=== PATIENT | male | born 1940 | race Caucasian/White ===

== ENCOUNTER 2016-04-23 13:51 | Inpatient (IN) | payer MEDICARE ==
[2016-04-23] VITALS (8 sets, daily range): BP systolic 125–168; BP diastolic 59–90; PULSE 70–90; RESP 16–24; TEMP 98.1–99.5; O2SAT 89–96
[~2016-04-23] VITALS: Ht 174 cm; Wt 110.5 kg
[~2016-04-23 13:51] MED LIST: ASPI81TA82 PO; CARD240C6 PO; CHOL1CAP6; FISH100020 PO; HYDR-2768 PO; LISI-363 PO; METF500 PO; MULT1TAB46; PRED20 PO; VENTAER INH; ZITH250T PO
[2016-04-23] MEDS ORDERED: CHOL1TAB42 PO (14:15)
[2016-04-23] MEDS ORDERED: ASPI81CH CHEW (14:15)
[2016-04-23] MEDS ORDERED: CART240C PO (14:15)
[2016-04-23] MEDS ORDERED: ATOR10TA15 PO (14:15)
[2016-04-23] MEDS ORDERED: METF500T4 PO (14:15)
[2016-04-23] MEDS ORDERED: CENTTAB8 PO (14:15)
[2016-04-23] MEDS ORDERED: HYDR25TA5 PO (14:15)
[2016-04-23] MEDS ORDERED: OMEG100037 PO (14:15)
[2016-04-23] MEDS ORDERED: SODIUM CHLOR 0.9% 1000 ML INJ 1,000 ML IV ONE ×2 (14:28→15:15)
--- NOTE | 2016-04-23 14:43 | RADHPO ---
EXAM DATE/TIME: 04/23/2016 14:32 [facility] COMPARISON: CHEST SINGLE AP, June 03, 2014, 17:38. INDICATIONS : Shortness of breath for four days. MEDICAL HISTORY : Hypertension. Diabetes mellitus type II. SURGICAL HISTORY : None. ENCOUNTER: Initial ACUITY: 4 - 6 days PAIN SCORE: 0/10 LOCATION: Bilateral chest FINDINGS: A single view of the chest demonstrates the lungs to be symmetrically aerated without evidence of mas s, infiltrate or effusion. The cardiomediastinal contours are unremarkable. Osseous structures are intact. CONCLUSION: Normal examination. Benito Robles MD on April 23, 2016 at 14:42 Board Certified Radiologist. This report was verified electronically.
--- NOTE | 2016-04-23 14:53 | PD ---
HPI Chief Complaint: Respiratory Distress Time Seen by Provider: 14:14 Travel History International Travel<30 days: Yes Contact w/Intl Traveler<30days: Yes Name of Country Traveled to: [place] Traveled to known affect area: No History of Present Illness HPI 75-year-old male with history of diabetes, hypertension, hypercholesterolemia, here for evaluation of cough and shortness of breath. The patient returned from a cruise from [place] today. Symptoms have been worsening over the last 4 days. Cough is productive of yellowish/greenish sputum. Subjective fevers/ chills. No hemoptysis. No chest pain. Dyspnea is at rest, worse with exertion. He is also having some orthopnea. He denies history of cardiopulmonary disease. No history of DVT or PE. PFSH Past Medical History Cardiovascular Problems: Yes (HTN) Diabetes: Yes Patient Takes Glucophage: Yes Hypertension: Yes Past Surgical History Tonsillectomy: Yes Other Surgery: Yes (CYST REMOVAL FROM BACK) Social History Alcohol Use: Yes (RARE) Tobacco Use: No Substance Use: No Allergies-Medications (Allergen,Severity, Reaction): Coded Allergies: No Known Allergies (Unverified , 04/23/16) Reported Meds & Prescriptions Reported Meds & Active Scripts Active Reported Vitamin D-3 (Cholecalciferol) 2,000 Unit Tab 1 Tab PO DAILY Fish Oil 1000 mg ([place]-3 Fatty Acids) 1 Cap Cap 4 Cap PO DAILY Centrum Adults (Multiple Vitamins W/ Minerals) 1 Tab 1 Tab PO DAILY Aspirin 81 Mg Chew 81 Mg CHEW DAILY Atorvastatin (Atorvastatin Calcium) 10 Mg Tab 10 Mg PO HS Hydrochlorothiazide 25 Mg Tab 25 Mg PO DAILY Cartia Xt (Diltiazem ER 24 HR) 240 Mg Caper 240 Mg PO DAILY Metformin ER (Metformin HCl) 500 Mg Leni 500 Mg PO BID With evening meal Review of Systems Except as stated in HPI: all other systems reviewed are Neg Physical Exam Narrative GENERAL: Well-developed, well-nourished, comfortable, no acute distress, speaking full sentences. SKIN: Warm and dry. No rash. HEAD: Atraumatic. Normocephalic. EYES: Pupils equal and round. No scleral icterus. No injection or drainage. ENT: Mucous membranes pink and moist. NECK: Trachea midline. No JVD. No nuchal rigidity. CARDIOVASCULAR: Regular rate and rhythm. RESPIRATORY: No accessory muscle use. Coarse breath sounds bilaterally. Breath sounds equal bilaterally. GASTROINTESTINAL: Abdomen soft, non-tender, nondistended. MUSCULOSKELETAL: No obvious deformities. No clubbing. No cyanosis. Mild bilateral pedal edema. No calf tenderness. NEUROLOGICAL: Awake and alert. No obvious cranial nerve deficits. Motor grossly within normal limits. Normal speech. PSYCHIATRIC: Appropriate mood and affect; insight and judgment normal. Data Data Last Documented VS Vital Signs Date Time Temp Pulse Resp B/P Pulse Ox O2 Delivery O2 Flow Rate FiO2 04/23/16 16:30 90 16 131/64 95 Nasal Cannula 3 04/23/16 13:53 98.1 Orders Complete Blood Count With Diff (04/23/16 14:28) Comprehensive Metabolic Panel (04/23/16 14:28) Prothrombin Time / Inr (Pt) (04/23/16 14:28) Act Partial Throm Time (Ptt) (04/23/16 14:28) Lactic Acid Sepsis Protocol (04/23/16 14:28) Ckmb (Isoenzyme) Profile (04/23/16 14:28) Troponin I (04/23/16 14:28) Urinalysis - C+S If Indicated (04/23/16 14:28) Influenzae A/B Antigen (04/23/16 14:28) Blood Culture (04/23/16 14:28) Chest, Single Ap (04/23/16 14:28) Ecg Monitoring (04/23/16 14:28) Iv Access Insert/Monitor (04/23/16 14:28) Oximetry (04/23/16 14:28) Oxygen Administration (04/23/16 14:28) Sodium Chlor 0.9% 1000 Ml Inj (Ns 1000 M (04/23/16 14:28) B-Type Natriuretic Peptide (04/23/16 14:28) Electrocardiogram (04/23/16 13:51) Albuterol-Ipratropium Neb (Duoneb Neb) (04/23/16 15:00) Ct Pulmonary Angiogram (04/23/16 14:47) Magnesium (Mg) (04/23/16 14:15) CKMB (04/23/16 14:15) CKMB% (04/23/16 14:15) Sodium Chlor 0.9% 1000 Ml Inj (Ns 1000 M (04/23/16 15:15) Oseltamivir (Tamiflu) (04/23/16 15:15) Potassium Cl 40 Meq/30 Ml Liq (Kcl 40 Me (04/23/16 15:30) Iohexol 350 Inj (Omnipaque 350 Inj) (04/23/16 16:20) Labs Laboratory Tests Test 04/23/16 04/23/16 04/23/16 14:15 14:35 16:20 White Blood Count 11.3 TH/MM3 Red Blood Count 4.49 MIL/MM3 Hemoglobin 13.3 GM/DL Hematocrit 40.3 % Mean Corpuscular Volume 89.7 FL Mean Corpuscular Hemoglobin 29.7 PG Mean Corpuscular Hemoglobin 33.1 % Concent Red Cell Distribution Width 12.8 % Platelet Count 261 TH/MM3 Mean Platelet Volume 9.8 FL Neutrophils (%) (Auto) 67.6 % Lymphocytes (%) (Auto) 21.1 % Monocytes (%) (Auto) 10.2 % Eosinophils (%) (Auto) 0.4 % Basophils (%) (Auto) 0.7 % Neutrophils # (Auto) 7.6 TH/MM3 Lymphocytes # (Auto) 2.4 TH/MM3 Monocytes # (Auto) 1.2 TH/MM3 Eosinophils # (Auto) 0.0 TH/MM3 Basophils # (Auto) 0.1 TH/MM3 CBC Comment DIFF FINAL Differential Comment Prothrombin Time 10.0 SEC Prothromb Time International 0.9 RATIO Ratio Activated Partial 32.0 SEC Thromboplast Time Sodium Level 140 MEQ/L Potassium Level 3.1 MEQ/L Chloride Level 99 MEQ/L Carbon Dioxide Level 30.0 MEQ/L Anion Gap 11 MEQ/L Blood Urea Nitrogen 34 MG/DL Creatinine 1.10 MG/DL Estimat Glomerular Filtration 66 ML/MIN Rate Random Glucose 139 MG/DL Calcium Level 9.6 MG/DL Magnesium Level 1.8 MG/DL Total Bilirubin 0.4 MG/DL Aspartate Amino Transf 38 U/L (AST/SGOT) Alanine Aminotransferase 50 U/L (ALT/SGPT) Alkaline Phosphatase 35 U/L Total Creatine Kinase 139 U/L Creatine Kinase MB 1.4 NG/ML Troponin I LESS THAN 0.02 NG/ML B-Type Natriuretic Peptide 16 PG/ML Total Protein 8.1 GM/DL Albumin 3.5 GM/DL Lactic Acid Level 1.2 mmol/L Urine Collection Type CATH Urine Color YELLOW Urine Turbidity CLEAR Urine pH 5.5 Urine Specific [place] 1.018 Urine Protein TRACE mg/dL Urine Glucose (UA) NEG mg/dL Urine Ketones NEG mg/dL Urine Occult Blood NEG Urine Nitrite NEG Urine Bilirubin NEG Urine Leukocyte Esterase NEG Urine Squamous Epithelial 0-5 /hpf Cells Urine Amorphous Sediment FEW Microscopic Urinalysis Comment CULT NOT INDICATED Urine Collection Time 1620 MDM Medical Decision Making Medical Screen Exam Complete: Yes Emergency Medical Condition: Yes Medical Record Reviewed: Yes Interpretation(s) EKG: Sinus with bigeminal PVCs, rate 89, indeterminate axis, no acute ischemic abnormality. Differential Diagnosis Pneumonia, bronchitis, PE, reactive airway disease, pleural effusion, influenza , pneumothorax, ACS Narrative Course Initial vital signs show heart rate 85, blood pressure 162/74, pulse ox 89% on room air/95% on 3 L nasal cannula, oral temp of 98.1F. CBC shows WBC 11.3, hemoglobin 13.3, hematocrit 40.3, platelets 261. CMP is remarkable for potassium 3.1 which was replaced orally, random glucose 139, otherwise unremarkable. Cardiac enzymes are negative. BNP is 16. Lactic acid is 1.2. Chest x-ray read as normal examination. Influenza B-positive. Patient was given a dose of Tamiflu. CT pulmonary angiogram: CONCLUSION: 1. Negative for central pulmonary emboli. 2. 6 mm nodule left upper lobe that does need followup CT scan in 6 months. 3. Moderate coronary artery calcification in both the LAD and the circumflex. The patient was given 3 DuoNeb treatments with some improvement in cough and dyspnea. The patient and the patient's were made aware of all findings. O2 saturation drops to 89% on room air. The patient does have generalized body aches. Given the patient's age with positive influenza B as well as hypoxia, he will be admitted for overnight observation. Case discussed with hospitalist Dr. Vicente will admit the patient to her service. The patient was provided a copy of this CT pulmonary angiogram report. Diagnosis Primary Impression: Influenza B Additional Impressions: Hypoxia Cough Pulmonary nodule Admitting Information Admitting Physician Requests: it Krunal Gay MD Apr 23, 2016 14:53
[2016-04-23 14:54] LABS: CHLORIDE 99 MEQ/L (98-107); POTASSIUM 3.1 MEQ/L (3.5-5.1); SODIUM (NA) 140 MEQ/L (136-145)
[2016-04-23 14:55] LABS: AUTOMATED NEUTROPHIL # 7.6 TH/MM3 (1.8-7.7); BASOPHIL # 0.1 TH/MM3 (0-0.2); BASOPHIL % 0.7 % (0.0-2.0); EOSINOPHIL % 0.4 % (0.0-4.0); HEMATOCRIT 40.3 % (39.0-51.0); LYMPH % 21.1 % (9.0-44.0); LYMPHOCYTE # 2.4 TH/MM3 (1.0-4.8); MEAN CELL VOLUME 89.7 FL (80.0-100.0); MEAN CORPUSCULAR HEMOGLOBIN 29.7 PG (27.0-34.0); MEAN CORPUSCULAR HGB CONC 33.1 % (32.0-36.0); MONO % 10.2 % (0.0-8.0); NEUT % 67.6 % (16.0-70.0); PLATELET COUNT 261 TH/MM3 (150-450); RED BLOOD COUNT 4.49 MIL/MM3 (4.50-5.90); RED CELL DISTRIBUTION WIDTH 12.8 % (11.6-17.2); WHITE BLOOD COUNT 11.3 TH/MM3 (4.0-11.0)
[2016-04-23] MEDS: RESP: ALBUTEROL 2.5 MG/IPRATROPIUM 0.5 MG NEB (SCH) INH ×2 (14:56→14:57)
[2016-04-23 14:57] LABS: HEMO FLAGS DIFF FINAL
[2016-04-23 14:58] LABS: ANION GAP 11 MEQ/L (5-15); BLOOD UREA NITROGEN 34 MG/DL (7-18); MAGNESIUM 1.8 MG/DL (1.5-2.5)
[2016-04-23 14:59] LABS: INTERNATIONAL NORMALIZED RATIO 0.9 RATIO
[2016-04-23 15:01] LABS: ALT (GPT) 50 U/L (12-78); AST (GOT) 38 U/L (15-37); GLOMERULAR FILTRATION RATE 66 ML/MIN (>89)
[2016-04-23 15:02] LABS: TOTAL BILIRUBIN ADULT 0.4 MG/DL (0.2-1.0)
[2016-04-23 15:04] LABS: ALKALINE PHOSPHATASE 35 U/L (45-117); CREATINE KINASE 139 U/L (39-308)
[2016-04-23] MEDS ORDERED: OSELTAMIVIR PHOSPHATE 75 MG CAP PO ONE (15:15)
[2016-04-23 15:16] LABS: CKMB 1.4 NG/ML (0.5-3.6)
[2016-04-23] MEDS ORDERED: POTASSIUM CL 40 MEQ/30 ML LIQ UDC PO ONE (15:30)
[2016-04-23] MEDS ORDERED: METFORMIN HOLD POST IV CONTRAST XX SCH (16:05)
[2016-04-23] MEDS ORDERED: IOHEXOL 350 MG/ML 10 ML VIAL (for RAD DIAG) IV ONE (16:20)
--- NOTE | 2016-04-23 16:34 | RADHPO ---
EXAM DATE/TIME: 04/23/2016 16:01 [facility] COMPARISON: No previous studies available for comparison. INDICATIONS : Shortness of breath for four days. IV CONTRAST: 74 cc Omnipaque 350 (iohexol) IV RADIATION DOSE: 21.72 CTDIvol (mGy) MEDICAL HISTORY : Hypertension. Diabetes. SURGICAL HISTORY : Tonsillectomy. ENCOUNTER: Initial ACUITY: 1 day PAIN SCALE: 0/10 LOCATION: Bilateral chest TECHNIQUE: Volumetric scanning of the chest was performed using a pulmonary embolism protocol MIP images were reconstructed. Using automated exposure control and adjustment of the mA and/or kV acco rding to patient size, radiation dose was kept as low as reasonably achievable to obtain optimal diag nostic quality images. FINDINGS: There is a 6 mm nodule in the left upper lobe. Scattered peribronchial thickening is noted. There a re no other suspicious lung lesions identified. There is no axillary adenopathy. There is no medias tinal adenopathy. There is marked coronary artery calcifications. There is no evidence for central pulmonary emboli. Portion of liver and spleen identified are free o f focal defects. CONCLUSION: 1. Negative for central pulmonary emboli. 2. 6 mm nodule left upper lobe that does need followup CT scan in 6 months. 3. Moderate coronary artery calcification in both the LAD and the circumflex. Burno Rosario MD FACR on April 23, 2016 at 16:29 Board Certified Radiologist. This report was verified electronically.
[2016-04-23 16:35] LABS: BLOOD, URINE NEG (NEG); GLUCOSE,URINE NEG (NEG); KETONE, URINE NEG (NEG); NITRITE,URINE NEG (NEG); PH, URINE 5.5 (5.0-8.5)
[2016-04-23 16:39] LABS: METHOD OF COLLECTION CATH; URINE COLOR YELLOW (YELLW/STRAW)
[2016-04-23 16:41] LABS: COMMENT (UR) CULT NOT INDICATED; CULTURE IF INDICATED CULT NOT INDICATED; SQUAMOUS EPITHELIAL CELL URINE 0-5 /hpf (0-5)
[2016-04-23] MEDS ORDERED: SODIUM CHLORIDE 0.9% FLUSH 5 ML FLUSH FLUSH PRN (17:45)
[2016-04-23] MEDS ORDERED: ACETAMINOPHEN 325 MG TAB PO PRN (17:45)
[2016-04-23] MEDS ORDERED: GLUCAGON 1 MG/ML VIAL OTHER PRN (18:00)
[2016-04-23] MEDS ORDERED: RESP: ALBUTEROL 2.5 MG/3 ML NEB (PRN) NEB (18:00)
[2016-04-23] MEDS ORDERED: DEXTROSE 50% IN WATER 50 ML VIAL(D50) IV PUSH PRN (18:00)
[2016-04-23] MEDS: SODIUM CHLOR 0.9% 1000 ML INJ 1,000 ML IV SCH (18:07)
--- NOTE | 2016-04-23 18:08 | HHI.HP ---
[facility] Service [facility] Primary Care Physician Non-Staff Admission Diagnosis influenza B, hypoxia, cough Diagnoses: (1) Influenza B Diagnosis: Principal (2) Bronchitis Diagnosis: Principal (3) Hypoxia Diagnosis: Principal (4) Bigeminy Diagnosis: Principal (5) Hypokalemia Diagnosis: Principal (6) Prerenal azotemia Diagnosis: Principal (7) Pulmonary nodule Diagnosis: Secondary (8) Coronary artery calcification seen on CAT scan Diagnosis: Secondary Chief Complaint: "couldn't breathe" Travel History International Travel<30 Days: Yes Contact w/Intl Traveler <30 Da: Yes Name of Country Traveled to: [place] Traveled to Known Affected Are: No History of Present Illness 75-year-old male with history of diabetes, hypertension, and hyperlipidemia is admitted for influenza and hypoxia. Patient states he went on a cruise recently to [place]. He states 4 days ago while on the cruise he developed symptoms. He states he "couldn't breathe" admitting to shortness of breath and wheezing. He admits to myalgias, fevers and chills, runny nose and congestion, and a cough mildly productive with yellow-kearney sputum. He denies any headaches, earache, or sore throat. Denies any chest pain. He denies any nausea, vomiting, or abdominal pain but states he feels bloated. He states he had a little bit of diarrhea admitting to stools which were a little loose this morning. Denies diagnosis of COPD. Patient admits to orthopnea but states this is a chronic issue. Patient denies any recent hospitalization or antibiotic use. He denies any recent leg swelling although states he will get swelling once in a while. Denies any hemoptysis. Review of Systems Constitutional: COMPLAINS OF: Fever, Chills, DENIES: Dizziness Eyes: DENIES: Blurred vision Ears, nose, mouth, throat: COMPLAINS OF: Running Nose, DENIES: Throat pain, Ear Pain Respiratory: COMPLAINS OF: Cough, Wheezing, Sputum production, Shortness of breath, DENIES: Hemoptysis Cardiovascular: COMPLAINS OF: Orthopnea, DENIES: Chest pain, Palpitations, Lower Extremity Edema Gastrointestinal: COMPLAINS OF: Diarrhea, DENIES: Abdominal pain, Black stools , Bloody stools, Nausea, Vomiting Genitourinary: DENIES: Urinary frequency, Dysuria Musculoskeletal: COMPLAINS OF: Muscle aches, DENIES: Neck pain Integumentary: DENIES: Rash Neurologic: DENIES: Headache, Localized weakness, Paresthesias Past Family Social History Past Medical History Diabetes Hypertension Hyperlipidemia Past Surgical History Abdominal hernia repair Pilonidal cyst removal Tonsillectomy Reported Medications Vitamin D-3 (Cholecalciferol) 2,000 Unit Tab 1 Tab PO DAILY Fish Oil 1000 mg ([place]-3 Fatty Acids) 1 Cap Cap 4 Cap PO DAILY Centrum Adults (Multiple Vitamins W/ Minerals) 1 Tab 1 Tab PO DAILY Aspirin 81 Mg Chew 81 Mg CHEW DAILY Atorvastatin (Atorvastatin Calcium) 10 Mg Tab 10 Mg PO HS Hydrochlorothiazide 25 Mg Tab 25 Mg PO DAILY Cartia Xt (Diltiazem ER 24 HR) 240 Mg Caper 240 Mg PO DAILY Metformin ER (Metformin HCl) 500 Mg Leni 500 Mg PO BID With evening meal Allergies: Coded Allergies: No Known Allergies (Unverified , 04/23/16) Family History Mother: Diabetes which developed later in life. Brother: Emphysema, smoker. Sister: age 50 from a hereditary disease. Brother is unsure but states she may have had an [facility]. 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 Lives in [place]. Patient quit smoking cigarettes 18-19 years ago, but smoked a couple of packs per day prior to this; started smoking at the age of 18. Rarely drinks alcohol. Denies history of illicit drug use. Physical Exam Vital Signs Vital Signs Date Time Temp Pulse Resp B/P Pulse Ox O2 Delivery O2 Flow Rate FiO2 04/23/16 16:30 90 16 131/64 95 Nasal Cannula 3 04/23/16 14:30 70 20 125/59 93 Nasal Cannula 3 04/23/16 14:15 89 Nasal Cannula 3 04/23/16 13:53 98.1 85 24 162/74 89 04/23/16 13:53 85 24 95 Nasal Cannula 3 Physical Exam GENERAL: This is a well-nourished, well-developed patient, in no apparent distress but he needs to sit on the side of the bed in order to breathe better. SKIN: No rashes, ecchymoses or lesions. Cool and dry. HEAD: Normocephalic. EYES: Pupils equal round and reactive. No scleral icterus. No injection or drainage. ENT: Right EAC with cerumen. Mild fluid at the left TM; no erythema of TMs bilaterally. Nose without bleeding. Throat without erythema or exudate. Uvula midline. Airway patent. NECK: Trachea midline. No lymphadenopathy. Supple; nontender over cervical spine. Full flexion, extension, and lateral range of motion of neck without difficulty or pain. CARDIOVASCULAR: Heart is difficult to auscultate due to respiratory sounds. Regular rate and rhythm. Bigeminy is noted on telemetry at times. RESPIRATORY: Diminished inspiratory breath sounds throughout with expiratory wheezing throughout. No rales. Productive cough with upper airway sounds noted. GASTROINTESTINAL: Abdomen non-tender, equivocally distended. No guarding. MUSCULOSKELETAL: No lower extremity edema bilaterally. NEUROLOGICAL: Awake and alert. Motor grossly within normal limits. Normal speech. Laboratory Laboratory Tests Test 04/23/16 04/23/16 04/23/16 14:15 14:35 16:20 White Blood Count 11.3 Red Blood Count 4.49 Hemoglobin 13.3 Hematocrit 40.3 Mean Corpuscular Volume 89.7 Mean Corpuscular Hemoglobin 29.7 Mean Corpuscular Hemoglobin 33.1 Concent Red Cell Distribution Width 12.8 Platelet Count 261 Mean Platelet Volume 9.8 Neutrophils (%) (Auto) 67.6 Lymphocytes (%) (Auto) 21.1 Monocytes (%) (Auto) 10.2 Eosinophils (%) (Auto) 0.4 Basophils (%) (Auto) 0.7 Neutrophils # (Auto) 7.6 Lymphocytes # (Auto) 2.4 Monocytes # (Auto) 1.2 Eosinophils # (Auto) 0.0 Basophils # (Auto) 0.1 CBC Comment DIFF FINAL Differential Comment Prothrombin Time 10.0 Prothromb Time International 0.9 Ratio Activated Partial 32.0 Thromboplast Time Sodium Level 140 Potassium Level 3.1 Chloride Level 99 Carbon Dioxide Level 30.0 Anion Gap 11 Blood Urea Nitrogen 34 Creatinine 1.10 Estimat Glomerular Filtration 66 Rate Random Glucose 139 Calcium Level 9.6 Magnesium Level 1.8 Total Bilirubin 0.4 Aspartate Amino Transf 38 (AST/SGOT) Alanine Aminotransferase 50 (ALT/SGPT) Alkaline Phosphatase 35 Total Creatine Kinase 139 Creatine Kinase MB 1.4 Troponin I LESS THAN 0.02 B-Type Natriuretic Peptide 16 Total Protein 8.1 Albumin 3.5 Lactic Acid Level 1.2 Urine Collection Type CATH Urine Color YELLOW Urine Turbidity CLEAR Urine pH 5.5 Urine Specific [place] 1.018 Urine Protein TRACE Urine Glucose (UA) NEG Urine Ketones NEG Urine Occult Blood NEG Urine Nitrite NEG Urine Bilirubin NEG Urine Leukocyte Esterase NEG Urine Squamous Epithelial 0-5 Cells Urine Amorphous Sediment FEW Microscopic Urinalysis Comment CULT NOT INDICATED Urine Collection Time 1620 Date/Time Procedure Status Source Growth 04/23/16 14:50 Influenza Types A,B Antigen (HEIDI) - Final Complete Nasal Washing Positive For Flu B Antigen 04/23/16 14:45 Aerobic Blood Culture Received Blood Peripheral Pending 04/23/16 14:45 Anaerobic Blood Culture Received Blood Peripheral Pending Result Diagram: 04/23/16 1415 04/23/[address] pulmonary angiogram shows a 6 mm nodule in the left upper lobe which needs follow-up CT scan in 6 months. Scattered peribronchial thickening is noted. No axillary adenopathy. No mediastinal adenopathy. Moderate coronary artery calcification in both the LAD and the circumflex. Negative for central pulmonary emboli. Chest x-ray without infiltrate or effusion. Assessment and Plan Assessment and Plan 75-year-old male with: Bronchitis/influenza/hypoxia: Patient's symptoms started 4 days ago and although somewhat early to diagnose bronchitis, patient is SOB and clearly has tightness and wheezing on exam with productive cough and positive influenza B test. Mild leukocytosis of 11.3. Patient's oxygen saturation was 89% on room air, but improved to 96% on 3 L of O2 via nasal cannula. Chest x-ray was personally interpreted without evidence of acute infiltrate. There is scattered peribronchial thickening on CTA chest. Patient was given 3 DuoNeb's and Tamiflu in the ED. Patient admits to some orthopnea, but BNP normal. No lower extremity edema or pulmonary edema on imaging. Troponin normal. -Continue Tamiflu 75 mg by mouth twice a day for a total of 5 days as patient is a diabetic -Continue oxygen and titrate as needed to keep O2 >92% -Solu-Medrol 125 mg IV once now -DuoNebs scheduled every 4 hours while awake; q2h prn -Guaifenesin-dextromethorphan prn cough Bigeminy: EKG personally interpreted with sinus rhythm and bigeminal PVCs; indeterminate axis. Telemetry was also noted to have bigeminy but would alternate with regular rhythm and isolated PVCs. Patient denies having any palpitations or dizziness. He is on diltiazem, continue. -Telemetry Prerenal azotemia: BUN 34. Creatinine normal at 1.10. -IV normal saline at 100 mL/hour -Monitor BMP -Hold home HCTZ for now Hypokalemia: Mild 3.1. Patient was given 40 mEq by mouth KCl in the ED. -Monitor and replete as needed Diabetes: BGL 139. -Hold metformin for 48 hours as patient received IV contrast. -Bedside Accu-Cheks with medium dose sliding scale insulin HTN: BP 162/70 on presentation. Likely due to acute illness. -Continue home medications -Clonidine 0.1 every 6 hours prn SBP >180 Pulmonary nodule: Incidental finding on CT pulmonary angiogram. Patient does have a history of smoking. He is advised he will need outpatient follow-up for this to rule out cancer. Coronary artery calcifications on CT scan: Incidental finding. Patient is on a statin, aspirin, and antihypertensives. Denies chest pain. 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 DVT prevention: TEDs/SCDs, heparin Physician Certification 2 Midnight Certification Type: Admission for Inpatient Services Order for Inpatient Services The services are ordered in accordance with Medicare regulations or non- Medicare payer requirements, as applicable. In the case of services not specified as inpatient-only, they are appropriately provided as inpatient services in accordance with the 2-midnight benchmark. Estimated LOS (days): 2 days is the estimated time the patient will need to remain in the hospital, assuming treatment plan goals are met and no additional complications. Post-Hospital Plan: Home Yesy Azevedo Apr 23, 2016 18:08
[2016-04-23] MEDS ORDERED: methylPREDNISolone SOD SUCC 125 MG/2 ML VIAL IV PUSH ONE (18:15)
[2016-04-23] MEDS ORDERED: guaiFENesin/DEXTROMETHORPHAN 200 MG/20 MG/10 ML CUP PO PRN (18:45)
[2016-04-23] MEDS ORDERED: cloNIDine HCL 0.1 MG TAB PO PRN (19:15)
[2016-04-23] MEDS: RESP: ALBUTEROL 2.5 MG/IPRATROPIUM 0.5 MG NEB (SCH) NEB (19:28)
[2016-04-23] MEDS: SODIUM CHLORIDE 0.9% FLUSH 5 ML FLUSH FLUSH SCH (21:00)
[2016-04-23] MEDS ORDERED: INSULIN ASPART SUPPLEMENTAL SCALE SQ SCH (21:00)
[2016-04-23] MEDS: ATORVASTATIN 10 MG TAB PO SCH (21:16)
[2016-04-23] MEDS: INSULIN ASPART SUPPLEMENTAL SCALE SQ SCH (21:17)
[2016-04-23] MEDS: HEPARIN SODIUM - SQ 10,000 UNITS/ML VIAL SQ SCH (21:18)
[2016-04-23] MEDS: OSELTAMIVIR PHOSPHATE 75 MG CAP PO SCH (21:18)
[2016-04-24] VITALS (10 sets, daily range): BP systolic 140–168; BP diastolic 56–95; PULSE 52–83; RESP 16–24; TEMP 96.1–98.8; O2SAT 92–96
[2016-04-24] MEDS: SODIUM CHLOR 0.9% 1000 ML INJ 1,000 ML IV SCH (03:10)
[2016-04-24] MEDS: INSULIN ASPART SUPPLEMENTAL SCALE SQ SCH ×4 (06:09→20:25)
[2016-04-24] MEDS: RESP: ALBUTEROL 2.5 MG/IPRATROPIUM 0.5 MG NEB (SCH) NEB ×4 (07:37→19:39)
[2016-04-24 07:57] LABS: EOSINOPHIL % 0.1 % (0.0-4.0); HEMATOCRIT 36.2 % (39.0-51.0); LYMPH % 14.5 % (9.0-44.0); LYMPHOCYTE # 0.9 TH/MM3 (1.0-4.8); MEAN CORPUSCULAR HEMOGLOBIN 30.8 PG (27.0-34.0); MEAN CORPUSCULAR HGB CONC 34.6 % (32.0-36.0); MONO % 3.4 % (0.0-8.0); PLATELET COUNT 221 TH/MM3 (150-450); RED BLOOD COUNT 4.07 MIL/MM3 (4.50-5.90); RED CELL DISTRIBUTION WIDTH 12.4 % (11.6-17.2); WHITE BLOOD COUNT 6.1 TH/MM3 (4.0-11.0)
[2016-04-24 08:01] LABS: HEMO FLAGS DIFF FINAL
[2016-04-24 08:05] LABS: POTASSIUM 3.7 MEQ/L (3.5-5.1)
[2016-04-24 08:17] LABS: BICARBONATE 28.8 MEQ/L (21.0-32.0)
[2016-04-24] MEDS: DILTIAZEM-CD 240 MG CAP ER PO SCH (08:45)
[2016-04-24] MEDS: ASPIRIN 81 MG CHEW TAB CHEW SCH (08:45)
[2016-04-24] MEDS: OSELTAMIVIR PHOSPHATE 75 MG CAP PO SCH ×2 (08:46→20:24)
[2016-04-24] MEDS: MULTIVITAMINS/MINERALS THERAPEUTIC TAB PO SCH (08:46)
[2016-04-24] MEDS: SODIUM CHLORIDE 0.9% FLUSH 5 ML FLUSH FLUSH SCH ×2 (08:46→20:22)
[2016-04-24] MEDS: CHOLECALCIFEROL (VIT D3) 1000 UNIT TAB PO SCH (08:46)
[2016-04-24] MEDS: HEPARIN SODIUM - SQ 10,000 UNITS/ML VIAL SQ SCH ×2 (08:47→20:22)
[2016-04-24] MEDS ORDERED: HYDROCHLOROTHIAZIDE 25 MG TAB PO SCH (09:00)
--- NOTE | 2016-04-24 09:37 | HHI.PR ---
Subjective Remarks Follow-up for bronchitis from influenza with hypoxia. Patient states he had night sweats last night, but patient remains afebrile. States his cough is the same, but shortness of breath and wheezing have improved. Denies any vomiting or diarrhea. Objective Vitals Vital Signs Date Time Temp Pulse Resp B/P Pulse Ox O2 Delivery O2 Flow Rate FiO2 04/24/16 08:00 97.9 65 24 150/89 95 04/24/16 07:39 95 Nasal Cannula 3.00 04/24/16 04:00 97.6 56 22 168/95 96 04/24/16 00:00 96.1 52 20 168/75 95 04/23/16 21:06 99.5 80 22 152/86 93 04/23/16 20:01 85 04/23/16 19:28 94 Nasal Cannula 3.00 04/23/16 18:30 99.4 84 24 163/90 96 04/23/16 18:10 88 16 168/80 95 Nasal Cannula 3 04/23/16 16:30 90 16 131/64 95 Nasal Cannula 3 04/23/16 14:30 70 20 125/59 93 Nasal Cannula 3 04/23/16 14:15 89 Nasal Cannula 3 04/23/16 13:53 98.1 85 24 162/74 89 04/23/16 13:53 85 24 95 Nasal Cannula 3 I/O 04/23/16 04/23/16 04/23/16 04/24/16 04/24/16 04/24/16 07:00 15:00 23:00 07:00 15:00 23:00 Intake Total 3023 ml 671 ml Output Total 700 ml Balance 2323 ml 671 ml Intake IV Total 3023 ml 671 ml Output Urine Total 700 ml # Voids 1 Result Diagram: 04/24/16 0625 04/24/16 [address] Angiography 04/23/16 1447 Signed Impressions: Service Date/Time: Saturday, April 23, 2016 16:01 - CONCLUSION: 1. Negative for central pulmonary emboli. 2. 6 mm nodule left upper lobe that does need followup CT scan in 6 months. 3. Moderate coronary artery calcification in both the LAD and the circumflex. Bruon Rosario MD FACR Chest X-Ray 04/23/16 1428 Signed Impressions: Service Date/Time: Saturday, April 23, 2016 14:32 - CONCLUSION: Normal examination. Benito Robles MD Objective Remarks GENERAL: Well-nourished, well-developed patient in no apparent distress sitting in recliner. SKIN: Warm and dry. CARDIOVASCULAR: Regular rate and rhythm. RESPIRATORY: No accessory muscle use. Inspiratory and expiratory wheezing throughout. No longer has abnormal upper airway sounds. GASTROINTESTINAL: Abdomen soft, non-tender, nondistended. MUSCULOSKELETAL: No lower extremity edema. NEUROLOGICAL: Awake and alert. Motor grossly within normal limits. Normal speech. PSYCHIATRIC: Appropriate mood and affect; insight and judgment normal. Urinary Catheter: No Vascular Central Line Catheter: No A/P Problem List: (1) Influenza B ICD Code: J10.1 Status: Acute (2) Bronchitis ICD Code: J40 Status: Acute (3) Hypoxia ICD Code: R09.02 Status: Acute (4) Bigeminy ICD Code: I49.9 Status: Acute (5) Hypokalemia ICD Code: E87.6 Status: Acute (6) Prerenal azotemia ICD Code: R79.89 Status: Acute (7) Pulmonary nodule ICD Code: R91.1 Status: Acute (8) Coronary artery calcification seen on CAT scan ICD Code: I25.10 Status: Acute Assessment and Plan 75-year-old male with: Bronchitis/influenza/hypoxia: Leukocytosis resolved. Wheezing on exam. SOB improved. Patient's oxygen saturation was 89% on room air, improved to 96% on 3 L of O2 but now back to 92% on 3L. Chest x-ray was personally interpreted without evidence of acute infiltrate. There is scattered peribronchial thickening on CTA chest. Patient admits to some orthopnea, but BNP normal. No lower extremity edema or pulmonary edema on imaging. Troponin normal. -Continue Tamiflu 75 mg by mouth twice a day for a total of 5 days as patient is a diabetic -Continue oxygen and titrate as needed to keep O2 >92% -S/p Solumedrol. Continue low dose prednisone 20 mg po daily. -DuoNebs scheduled every 4 hours while awake; q2h prn -Patient has not been using Guaifenesin-dextromethorphan prn cough. Will switch to guaifenesin 600 mg po bid scheduled to help expectorate mucus. Tessalon prn cough. -If improved tomorrow, will need walk test. Bigeminy: EKG personally interpreted with sinus rhythm and bigeminal PVCs; indeterminate axis. Telemetry was also noted to have bigeminy but would alternate with regular rhythm and isolated PVCs. Patient denies having any palpitations or dizziness. He is on diltiazem, continue. -Telemetry Prerenal azotemia: Improved. BUN 34-->23. Creatinine normal. -Discontinue IVF. RN states patient is eating and drinking. Hydrate orally. -Recheck am BMP -Hold home HCTZ for now, likely can resume tomorrow. Hypokalemia: Resolved. 3.1-->3.7 s/p repletion. -Monitor and replete as needed Diabetes: BGL 234 this am likely attributed to high dose of Solumedrol last night. -Hold metformin for 48 hours as patient received IV contrast. -Bedside Accu-Cheks with medium dose sliding scale insulin. If remains significantly elevated, may need to switch to high dose SSI. Hopefully will improve as IV steroid will not be continued. HTN: BP 162/70 on presentation. Likely due to acute illness. -Continue home medications aside from HCTZ which was held due to azotemia. -Clonidine 0.1 every 6 hours prn SBP >160 DBP >90 Pulmonary nodule: Incidental finding on CT pulmonary angiogram. Patient does have a history of smoking. He is advised he will need outpatient follow-up for this to rule out cancer. Coronary artery calcifications on CT scan: Incidental finding. Patient is on a statin, aspirin, and antihypertensives. Denies chest pain. He is advised to follow-up with outpatient transmitter chief. PT eval for possible deconditioning due to illness. DVT prevention: TEDs/SCDs, heparin Discussed with Dr. Vicente. Yesy Azevedo Apr 24, 2016 09:36
--- NOTE | 2016-04-24 13:28 | EKG ---
Date Performed: 04/23/2016 Time Performed: 13:51:46 PTAGE: 75 years EKG: Sinus rhythm with bigeminal PVCs. Indeterminate axis IV conduction defect Poor R wave progression - probable norm al variant Abnormal ECG NO PREVIOUS TRACING DOCTOR: Dragan De La Cruz Interpretating Date/Time 04/24/2016 13:27:38
[2016-04-24] MEDS: predniSONE 20 MG TAB PO SCH (13:35)
[2016-04-24] MEDS ORDERED: BENZONATATE 100 MG CAP PO PRN (14:30)
[2016-04-24] MEDS: ATORVASTATIN 10 MG TAB PO SCH (20:24)
[2016-04-24] MEDS: guaiFENesin E.R. 600 MG TAB PO SCH (20:26)
[2016-04-25] VITALS: BP 150/89; PULSE 73; RESP 18; TEMP 96; O2SAT 96
[2016-04-25 04:00] VITALS: BP 156/88; PULSE 74; RESP 18; TEMP 96.8; O2SAT 95
[2016-04-25] MEDS: INSULIN ASPART SUPPLEMENTAL SCALE SQ SCH ×2 (05:44→13:58)
[2016-04-25] MEDS: RESP: ALBUTEROL 2.5 MG/IPRATROPIUM 0.5 MG NEB (SCH) NEB ×3 (07:31→14:34)
[2016-04-25 07:33] VITALS: O2SAT 97
[2016-04-25 08:00] VITALS: BP 157/69; PULSE 68; RESP 20; TEMP 98.2; O2SAT 94
[2016-04-25] MEDS: HEPARIN SODIUM - SQ 10,000 UNITS/ML VIAL SQ SCH (09:33)
[2016-04-25] MEDS: ASPIRIN 81 MG CHEW TAB CHEW SCH (09:39)
[2016-04-25] MEDS: MULTIVITAMINS/MINERALS THERAPEUTIC TAB PO SCH (09:39)
[2016-04-25] MEDS: guaiFENesin E.R. 600 MG TAB PO SCH (09:39)
[2016-04-25] MEDS: predniSONE 20 MG TAB PO SCH (09:39)
[2016-04-25] MEDS: CHOLECALCIFEROL (VIT D3) 1000 UNIT TAB PO SCH (09:41)
[2016-04-25] MEDS: DILTIAZEM-CD 240 MG CAP ER PO SCH (09:41)
[2016-04-25] MEDS: OSELTAMIVIR PHOSPHATE 75 MG CAP PO SCH (09:42)
[2016-04-25] MEDS ORDERED: PRED20 PO (11:16)
[2016-04-25] MEDS ORDERED: OSEL75 PO (11:16)
--- NOTE | 2016-04-25 11:16 | HHI.DCPOC ---
Discharge Care Plan Diagnosis: (1) Hypoxia (2) Influenza B Goals to Promote Your Health * To prevent worsening of your condition and complications * To maintain your health at the optimal level Directions to Meet Your Goals Take your medications as prescribed Follow your dietary instruction Follow activity as directed Keep your appointments as scheduled Take your immunizations and boosters as scheduled If your symptoms worsen call your PCP, if no PCP go to Urgent Care Center or Emergency Room Smoking is Dangerous to Your Health. Avoid second hand smoke Call the 24-hour hour crisis hotline for domestic abuse at Elizabeth Vicente MD Apr 25, 2016 11:16
[2016-04-25 12:00] VITALS: BP 142/77; PULSE 60; RESP 20; TEMP 97.2; O2SAT 94
--- NOTE | 2016-04-25 12:01 | HHI.DS ---
Discharge Summary Admission Date Apr 23, 2016 at 17:13 Discharge Date: Apr 25, 2016 Admitting Diagnosis influenza B, hypoxia, cough (1) Influenza B ICD Code: J10.1 Diagnosis: Principal (2) Bronchitis ICD Code: J40 Diagnosis: Principal (3) Hypoxia ICD Code: R09.02 Diagnosis: Principal (4) Bigeminy ICD Code: I49.9 Diagnosis: Principal (5) Hypokalemia ICD Code: E87.6 Diagnosis: Principal (6) Prerenal azotemia ICD Code: R79.89 Diagnosis: Principal (7) Pulmonary nodule ICD Code: R91.1 Diagnosis: Secondary (8) Coronary artery calcification seen on CAT scan ICD Code: I25.10 Diagnosis: Secondary Procedures none Brief History - From Admission 75-year-old male with history of diabetes, hypertension, and hyperlipidemia is admitted for influenza and hypoxia. Patient states he went on a cruise recently to [place]. He states 4 days ago while on the cruise he developed symptoms. He states he "couldn't breathe" admitting to shortness of breath and wheezing. He admits to myalgias, fevers and chills, runny nose and congestion, and a cough mildly productive with yellow-kearney sputum. He denies any headaches, earache, or sore throat. Denies any chest pain. He denies any nausea, vomiting, or abdominal pain but states he feels bloated. He states he had a little bit of diarrhea admitting to stools which were a little loose this morning. Denies diagnosis of COPD. Patient admits to orthopnea but states this is a chronic issue. Patient denies any recent hospitalization or antibiotic use. He denies any recent leg swelling although states he will get swelling once in a while. Denies any hemoptysis. CBC/BMP: 04/24/16 0625 04/24/16 0625 Significant Findings Laboratory Tests Test 04/23/16 04/24/16 14:15 06:25 White Blood Count 11.3 TH/MM3 (4.0-11.0) Red Blood Count 4.49 MIL/MM3 4.07 MIL/MM3 (4.50-5.90) (4.50-5.90) Monocytes (%) (Auto) 10.2 % (0.0-8.0) Monocytes # (Auto) 1.2 TH/MM3 (0-0.9) Activated Partial 32.0 SEC Thromboplast Time (24.3-30.1) Potassium Level 3.1 MEQ/L (3.5-5.1) Blood Urea Nitrogen 34 MG/DL (7-18) 23 MG/DL (7-18) Estimat Glomerular Filtration 66 ML/MIN (>89) Rate Random Glucose 139 MG/DL 237 MG/DL (74-106) (74-106) Aspartate Amino Transf 38 U/L (15-37) (AST/SGOT) Alkaline Phosphatase 35 U/L (45-117) Troponin I LESS THAN 0.02 NG/ML (0.02-0.05) Hemoglobin 12.5 GM/DL (13.0-17.0) Hematocrit 36.2 % (39.0-51.0) Neutrophils (%) (Auto) 82.0 % (16.0-70.0) Lymphocytes # (Auto) 0.9 TH/MM3 (1.0-4.8) Imaging Last Impressions CT Angiography 04/23/16 1447 Signed Impressions: Service Date/Time: Saturday, April 23, 2016 16:01 - CONCLUSION: 1. Negative for central pulmonary emboli. 2. 6 mm nodule left upper lobe that does need followup CT scan in 6 months. 3. Moderate coronary artery calcification in both the LAD and the circumflex. Bruno Rosario MD FACR Chest X-Ray 04/23/16 1428 Signed Impressions: Service Date/Time: Saturday, April 23, 2016 14:32 - CONCLUSION: Normal examination. Benito Robles MD PE at Discharge GENERAL: Well-nourished, well-developed patient in no apparent distress sitting in recliner. SKIN: Warm and dry. CARDIOVASCULAR: Regular rate and rhythm. RESPIRATORY: No accessory muscle use. Inspiratory and expiratory wheezing throughout. No longer has abnormal upper airway sounds. GASTROINTESTINAL: Abdomen soft, non-tender, nondistended. MUSCULOSKELETAL: No lower extremity edema. NEUROLOGICAL: Awake and alert. Motor grossly within normal limits. Normal speech. PSYCHIATRIC: Appropriate mood and affect; insight and judgment normal. Hospital Course Patient was seen and treated for hypoxemia related to the flu. Despite his vaccine patient did contract flu b. He was hypoxemic however this improved with a short course of steroids, oxygenation and bronchodilators. Patient was discharged home. His walk test. He received Tamiflu. Patient education was provided Pt Condition on Discharge: Good Discharge Disposition: Discharge Home Discharge Time: > 30 minutes Discharge Instructions DIET: Follow Instructions for: As Tolerated, No Restrictions Activities you can perform: Regular-No Restrictions New Medications: Oseltamivir (Tamiflu) 75 Mg Cap 75 MG PO BID Infection #6 CAP Prednisone (Prednisone) 20 Mg Tab 20 MG PO DAILY Inflammation #6 TAB Continued Medications: Aspirin (Aspirin) 81 Mg Chew 81 MG CHEW DAILY Ref 0 TAB Atorvastatin (Atorvastatin) 10 Mg Tab 10 MG PO HS Cholesterol Management #30 Ref 0 TAB Cholecalciferol (Vitamin D-3) 2,000 Unit Tab 1 TAB PO DAILY Diltiazem ER 24 HR (Cartia Xt) 240 Mg Caper 240 MG PO DAILY #30 Ref 0 CAP Hydrochlorothiazide (Hydrochlorothiazide) 25 Mg Tab 25 MG PO DAILY #30 Ref 0 TAB Metformin ER (Metformin ER) 500 Mg Leni 500 MG PO BID With evening meal Blood Sugar Management Ref 0 TAB Multiple Vitamins W/ Minerals (Centrum Adults) 1 Tab 1 TAB PO DAILY Nutritional Supplement Ref 0 TAB [place]-3 Fatty Acids (Fish Oil 1000 mg) 1 Cap Cap 4 CAP PO DAILY Elizabeth Vicente MD Apr 25, 2016 12:01
[2016-04-25] MEDS: SODIUM CHLORIDE 0.9% FLUSH 5 ML FLUSH FLUSH SCH (13:59)
[2016-04-25] MEDS ORDERED: ALBU6.7H INH (14:21)
== END 2016-04-25 15:00 | disposition home or self-care (01) | DRG 195 ==
LOC: PHED 13:51 → PHEDA 17:13 → PH3A 18:17
PROVIDERS: ADMIT Hospitalist; ATTEND Hospitalist
DX: J10.1 Influenza due to other identified influenza virus with other respiratory manifestations (principal); E11.9 Type 2 diabetes mellitus without complications; I10 Essential (primary) hypertension; I49.3 Ventricular premature depolarization; I25.10 Atherosclerotic heart disease of native coronary artery without angina pectoris; R09.02 Hypoxemia; E87.6 Hypokalemia; R91.1 Solitary pulmonary nodule; E78.5 Hyperlipidemia, unspecified; Z79.84 Long term (current) use of oral hypoglycemic drugs; Z87.891 Personal history of nicotine dependence
CPT/HCPCS: 71010; 71275; 80048; 80053; 81001; 82550; 82552; 82948; 83605; 83735; 83880; 84484; 85025; 85610; 85730; 87040; 87804; 93005; 94150; 94620; 94640; 94664; 96360; J1644; J1815; J2930; J7030; J7512; Q9967